=== PATIENT | female | born 1985 | race Caucasian/White ===

== ENCOUNTER → 2017-03-04 | Outpatient (CLI) | payer OTHER | END | disposition home or self-care (01) | LOC: C.PAPS 11:44 | PROVIDERS: ATTEND Physician Assistant | DX: Z01.419 Encounter for gynecological examination (general) (routine) without abnormal findings (principal) ==

== ENCOUNTER 2023-05-04 15:16 | Inpatient (IN) ==
--- NOTE | 2023-05-04 15:22 | ED Triage Note ---
Date of Service May 04, 2023 Provider in Triage Author: Danis Alejandro History of Present Illness This patient was briefly evaluated while in triage. An abbreviated physical exam was performed. This patient is a 37-year-old Female who presents to the ED for evaluation of severe headaches since this past Tuesday. The patient was seen by her PCP, and had a CT scan with an abnormal finding. She was referred to the emergency department for further workup. Patient denies any recent injuries to the head. I did quickly review CT imaging, showing a hyperdense posterior sagittal sinus. This is suspicious for acute dural sinus thrombosis. A CTV of the head was recommended for further evaluation. Physical Exam CONSTITUTIONAL: Healthy and well nourished. Alert and oriented X 3. GCS 15. HEENT: Normocephalic, atraumatic. RESPIRATORY: Clear to auscultation bilaterally with no wheezing, crackles, rhonchi or stridor. CARDIOVASCULAR: Regular rate and rhythm with no murmurs, rubs or gallops. GASTROINTESTINAL: Bowel sounds present in all quadrants. MUSCULOSKELETAL: Full range of motion of all joints without discomfort. INTEGUMENTARY: No rash or other significant dermatologic conditions noted. HEMATOLOGIC: No ecchymosis or petechiae. PSYCHIATRIC: Positive affect. NEUROLOGIC: No ataxia with ambulation. Initial orders for labs and / or imaging were placed and patient was placed in the waiting area until a bed is available. Please see further documentation for the full ED course.
--- NOTE | 2023-05-04 15:46 | Emergency Department Note ---
Impression & Plan Central retinal vein thrombosis ED Provider Note NAME: LYRIC MIGUEL AGE: 37 SEX: F : 1985 ARRIVES VIA: Walk-In INFORMANT: Patient ED PROVIDER(S): Amado Sanchez DO CHIEF COMPLAINT: headache HPI: Patient is a 37-year-old female who presents to the ER for severe headache. This has been present since last Tuesday. She was recently on antibiotics, steroids and treated for pneumonia. She notes she has neck pain as well. No change in vision or loss of vision. No chest pain or shortness of breath. No weakness or numbness in the arms or legs. She does take control. No recent trips, surgeries. Denies any hemoptysis. ADDITIONAL HISTORY OBTAINED: Per HPI Chronic Medical/Social Conditions Affecting Care: Per HPI PAST MEDICAL HISTORY:See Below PAST SURGICAL HISTORY:See Below FAMILY HISTORY:See Below SOCIAL HISTORY:See Below HOME MEDICATIONS:See Below ALLERGIES:See Below VITALS:See Below PHYSICAL EXAMINATION: GENERAL: Sitting up in bed, alert, well appearing, well nourished, no distress, non-toxic EYE EXAM: normal conjunctiva. PERRL and EOM's intact. OROPHARYNX: no exudate, no erythema, lips, buccal mucosa, and tongue normal and mucous membranes are moist NECK: supple, no nuchal rigidity, no adenopathy, non-tender LUNGS: Clear to auscultation. Normal chest wall mechanics HEART: no murmurs, S1 normal and S2 normal ABDOMEN: abdomen soft, non-tender, normo-active bowel sounds, no masses, no rebound or guarding. BACK: Back is symmetrical on inspection and there is no deformity, no midline tenderness, no CVA tenderness. SKIN: no rashes and no bruising UPPER EXTREMITIES: upper extremities are grossly normal. LOWER EXTREMITIES: No pitting edema. NEURO EXAM: Normal sensorium, cranial nerves II-XII intact, normal speech, no weakness of arms, no weakness of legs. No drift. Finger to nose intact. Gross sensation intact. MEDICAL DECISION MAKING: Patient is a 37-year-old female who presents the ER for headache referred in from the outpatient PCP following a CT that suggested a CVT. IV was established blood was obtained. Labs show leukocytosis 17,000. No significant anemia. Patient is on control. INR and PTT were unremarkable. BMP with mild hypokalemia 3.4. LFTs and bilirubin was unremarkable. Troponin was negative. Lipase normal. Discussed with Dr. Richardson and he recommended a CT venogram with a CTA which was performed to confirm sagittal sinus venous thrombosis. Discussed with neurology . He recommended heparin bolus and drip and admission. I discussed the case with the hospitalist for further evaluation management treatment. Updated the patient. No bleeding risk factors in regards to no coughing up blood, vomiting blood, urinating blood or previous brain bleeds or recent surgery. Consults/Care Managements Discussions: Per [facility] Triage Nursing notes reviewed. Limited review of prior medical records performed Vital Signs: reviewed and remarkable for HTN Differential diagnosis: Differential Diagnosis includes but is not limited to headache, tension headache, cluster headache, migraine, subarachnoid hemorrhage, meningitis, mass, central venous thrombus, concussion, trauma and epidural/subdural hemorrhage. ER treatment provided: See below Diagnostics interpreted by me include EKG and cardiac monitoring as listed below: -Cardiac Monitoring: An order was placed for continuous cardiac monitoring. The monitor shows a rate of 70 with sinus rhythm. -ECG: Sinus rhythm rate of 53 Normal axis No PVCs QTc 416 -Laboratory studies:Interpreted by me as stated above in MDM and shown below. Imaging studies: Xrays: As interpreted by me: Portable AP upright 1 view of the chest shows no focal infiltrate CTs show: CTs as described above Procedures:none Critical Care: I have personally spent 45 minutes of critical care time in the direct management of this patient. This includes bedside care, interpretation of diagnostic studies, and testing, discussion with consultants, patient, and family members, and other required patient management activities. This 45 minutes is in excess of all separately billable procedures. Past Med/Surg History Medical History Diarrhea GERD (gastroesophageal reflux disease) Surgical History H/O wisdom tooth extraction Family History Other No family history of adverse response to anesthesia Denies family history of Ovarian cancer Breast cancer Colorectal cancer Social History Smoking Status: Never smoker Second Hand Exposure: No; Do You Dip or Chew Tobacco: No; Hx Alcohol Use: Yes Hx Substance Use: No Preferred Language: Upper Sorbian Communication Ability: Effective Journalism Intern Required: No Beliefs That Will Affect Care: None Current Living Situation: Spouse Feels Safe at Home: Yes Assistive Devices: Contacts and Glasses Allergies Allergies Allergy/AdvReac Type Severity Reaction Status Date / Time No Known Drug Allergies Allergy Verified 04/05/23 15:16 Home Meds Home Medications Medication Instructions Recorded Confirmed montelukast 10 mg tablet 10 mg PO QAM 12/07/19 05/04/23 (Singulair) multivitamin 1 tab PO QAM 12/05/20 05/04/23 omeprazole 20 mg PO QAM 08/13/22 05/04/23 amoxicillin 875 mg-potassium 1 tab PO BID 05/04/23 05/04/23 clavulanate 125 mg tablet prednisone 20 mg tablet 20 mg PO UD 05/04/23 05/04/23 Previous Rx's Medication Instructions Recorded L norgest/E estradiol-E estrad See Rx Instructions .Route 08/13/22 0.15 mg-30 mcg (84)/10 mcg(7) .COMPLEX #91 tabs tabs,3mos (Jaimiess) Results & Data (ED) Vital Signs Vital Signs - 24 hr 05/04/23 15:16 05/04/23 15:20 05/04/23 15:44 Temperature 37.0 C Temperature Source Temporal Artery Scan Pulse Rate 79 56 L Pulse Rate [Right Finger] 61 Pulse Rhythm Regular Regular Pulse Strength Normal Respiratory Rate 14 18 16 Respiratory Effort / Characteristics Non-Labored Spontaneous Non-Labored Respiratory Depth Normal Normal Respiratory Pattern Regular Regular Blood Pressure 153/84 H Blood Pressure [Left Arm] 134/72 Blood Pressure Mean 107 Blood Pressure Mean [Left Arm] 92 Blood Pressure Position Sitting Blood Pressure Position [Left Arm] Semi-fowlers Pulse Oximetry 100 98 99 Oxygen Delivery Method Room Air Room Air Room Air Sepsis Recent Fever Within 48 Hours No Sepsis New/Unexplained Change in Mental Status No Sepsis Action Taken by Nursing No Action Required 05/04/23 16:14 05/04/23 16:30 05/04/23 16:42 Temperature Temperature Source Pulse Rate 66 59 L 56 L Pulse Rate [Right Finger] Pulse Rhythm Pulse Strength Respiratory Rate 15 16 Respiratory Effort / Characteristics Respiratory Depth Respiratory Pattern Blood Pressure 122/69 122/69 Blood Pressure [Left Arm] Blood Pressure Mean 86 86 Blood Pressure Mean [Left Arm] Blood Pressure Position Blood Pressure Position [Left Arm] Pulse Oximetry 91 100 Oxygen Delivery Method Room Air Room Air Sepsis Recent Fever Within 48 Hours Sepsis New/Unexplained Change in Mental Status Sepsis Action Taken by Nursing 05/04/23 17:00 05/04/23 17:30 05/04/23 18:00 Temperature Temperature Source Pulse Rate 53 L 59 L 69 Pulse Rate [Right Finger] Pulse Rhythm Pulse Strength Respiratory Rate 17 17 16 Respiratory Effort / Characteristics Respiratory Depth Respiratory Pattern Blood Pressure 115/64 127/74 130/84 Blood Pressure [Left Arm] Blood Pressure Mean 81 91 99 Blood Pressure Mean [Left Arm] Blood Pressure Position Blood Pressure Position [Left Arm] Pulse Oximetry 100 91 100 Oxygen Delivery Method Room Air Room Air Room Air Sepsis Recent Fever Within 48 Hours Sepsis New/Unexplained Change in Mental Status Sepsis Action Taken by Nursing 05/04/23 18:30 Temperature Temperature Source Pulse Rate 62 Pulse Rate [Right Finger] Pulse Rhythm Pulse Strength Respiratory Rate 18 Respiratory Effort / Characteristics Respiratory Depth Respiratory Pattern Blood Pressure 123/83 Blood Pressure [Left Arm] Blood Pressure Mean 96 Blood Pressure Mean [Left Arm] Blood Pressure Position Blood Pressure Position [Left Arm] Pulse Oximetry 100 Oxygen Delivery Method Room Air Sepsis Recent Fever Within 48 Hours Sepsis New/Unexplained Change in Mental Status Sepsis Action Taken by Nursing Laboratory Data 05/04/23 15:56 05/04/23 15:56 Lab Results 05/04/23 05/04/23 Range/Units 15:56 16:02 WBC 17.06 H (4.8-10.8) K/ul RBC 5.40 (4.20-5.40) M/uL Hgb 15.4 (12.0-16.0) g/dl POC Hgb 15.3 (12.0-16.0) g/dl Hct 45.8 (37.0-47.0) % POC Hct 45 (37-47) % MCV 84.8 (80.0-100.0) fL MCH 28.5 (25.0-34.0) pg MCHC 33.6 (32.0-36.0) g/dL RDW Std Deviation 36.4 (36.4-46.3) fL RDW Coeff of Erendira 12.0 (11.5-14.5) % Plt Count 234 (130-400) K/uL MPV 10.7 (9.4-12.4) fL Immature Gran % (Auto) 1.3 % Neut % (Auto) 54.8 % Lymph % (Auto) 34.6 % Patrick % (Auto) 7.4 % Eos % (Auto) 1.3 % Baso % (Auto) 0.6 % Neut # (Auto) 9.35 H (1.40-6.50) K/uL Lymph # (Auto) 5.91 H (1.20-3.40) K/uL Patrick # (Auto) 1.26 H (0.11-0.59) K/uL Eos # (Auto) 0.22 (0.00-0.50) K/uL Baso # (Auto) 0.10 (0.00-0.20) K/uL Immature Gran # (Auto) 0.22 H (0.01-0.20) K/uL PT 10.9 (9.0-12.0) Seconds INR 1.0 (0.9-1.1) APTT 25 (21-31) Seconds PTT Ratio 0.9 POC Sodium 139 (135-144) mmol/L Sodium 138 (136-145) mmol/L POC Potassium 3.4 (3.3-5.0) mmol/L Potassium 3.4 L (3.5-5.1) mmol/L POC Chloride 101 (101-112) mmol/L Chloride 102 (98-107) mmol/L Carbon Dioxide 26 (21-32) mmol/L POC Total CO2 28 (24-31) mmol/L Anion Gap 10 (3-11) POC Anion Gap 15.0 L (16-25) mmol/L POC BUN 13 (7-18) mg/dl BUN 14 (6-23) mg/dl Creatinine 0.79 (0.6-1.2) mg/dl POC Creatinine 0.8 (0.6-1.3) mg/dl Est Cr Clr Drug Dosing 83.4 ml/min Est GFR ( Amer) 110.1 ml/min Est GFR (Non-Af Amer) 95.0 ml/min BUN/Creatinine Ratio 17.7 (10-20) Glucose 82 (70-99(Fasting)) mg/dl POC Glucose (other) 87 (70-99) mg/dl Calcium 9.4 (8.6-10.3) mg/dl POC Ioniz Calcium Talha 1.13 (1.12-1.32) mmol/l Total Bilirubin 0.4 (0.2-1.0) mg/dl AST 11 L (13-39) U/L ALT 16 (7-52) U/L Alkaline Phosphatase 40 (34-104) U/L Troponin I High Sens < 2.3 (0-14) pg/ml C-Reactive Protein 0.58 H (0-0.5) mg/dl Total Protein 7.5 (6.0-8.3) gm/dl Albumin 4.3 (3.4-5.0) gm/dl Globulin 3.2 (2.5-4.0) gm/dl Albumin/Globulin Ratio 1.3 (0.9-2) Lipase 11 (11-82) U/L Administered Medications Discontinued Medications Heparin Sodium (Porcine) (Heparin Sod (Porcine) 1000 Unit/Ml) 1 units IV NOW ONE Stop: 05/04/23 17:23 Last Admin: 05/04/23 17:19 Dose: 4,000 units Documented By: MILE Co-signed By: YISSEL Heparin Sodium/Dextrose (Heparin Iv Adult Wt-Based Standard W/ Initial Bolus Protocol) 1 each IV NOW STA; Protocol Stop: 05/04/23 17:07 Last Admin: 05/04/23 17:20 Dose: 1 each Documented By: MILE Heparin Sodium/Dextrose (Heparin Sodium/Dextrose) 25,000 units in 500 mls @ 20 mls/hr IV .Q24H SEDA; Protocol Stop: 06/03/23 17:29 Last Admin: 05/04/23 17:20 Dose: 1,000 units/hr, 20 mls/hr Documented By: MILE Co-signed By: YISSEL Ioversol (Optiray 320 125ml) 118 ml IV ONCE ONE Stop: 05/04/23 16:17 Last Admin: 05/04/23 16:19 Dose: 118 ml Documented By: JASPAL Imaging Data Radiologist's Impression: Venogram CT 05/04/23 15:43 CT angio head w con, CT head venogram w con CLINICAL HISTORY: ?cvt TECHNIQUE: CT angiography and venography of the head was performed following intravenous administration of iodinated contrast. Coronal and sagittal MIPS were obtained from the axial data set and were submitted for review. Automated dose lowering techniques and/or adjustment according to patient size were utilized for this examination. All measurements were calculated based on NASCET criteria. CT DOSE: 582.88 mGy.cm Comparison: Comparison is made to CT head 05/04/2023 FINDINGS: CTA Head: The anterior and posterior cerebral circulations are patent. No hemodynamically significant stenosis, aneurysm, dissection, or arteriovenous malformation is shown. CT venogram: Although evaluation is limited by suboptimal contrast timing, there is a large filling defect in the posterior aspect of the superior sagittal sinus extending to the confluence. IMPRESSION: 1. Superior sagittal sinus venous thrombosis. 2. No occlusion, hemodynamically significant stenosis, aneurysm, dissection, or arteriovenous malformation in the major intracranial arteries. Assessment of stenosis of the internal carotid arteries is based on NASCET criteria. ACT 112: Negative or not required by law. Electronically signed by: hCris Balderas M.D. 05/04/2023 4:56 PM Chest X-Ray 05/04/23 15:44 XR chest 1V portable HISTORY: 37 years-old Female Chest pain, nonspecific COMPARISON: None TECHNIQUE: AP view of the chest FINDINGS: Cardiomediastinal and hilar silhouettes are within normal limits. No pneumothorax, pleural effusion, airspace consolidation or pulmonary edema. Bones appear normal. IMPRESSION: No acute process. ACT 112: Negative or not required by law. The above report was generated using voice recognition software. It may contain grammatical, syntax or spelling errors. Electronically signed by: Abilio Ruvalcaba M.D. 05/04/2023 4:21 PM Head CTA 05/04/23 15:48 CT angio head w con, CT head venogram w con CLINICAL HISTORY: ?cvt TECHNIQUE: CT angiography and venography of the head was performed following intravenous administration of iodinated contrast. Coronal and sagittal MIPS were obtained from the axial data set and were submitted for review. Automated dose lowering techniques and/or adjustment according to patient size were utilized for this examination. All measurements were calculated based on NASCET criteria. CT DOSE: 582.88 mGy.cm Comparison: Comparison is made to CT head 05/04/2023 FINDINGS: CTA Head: The anterior and posterior cerebral circulations are patent. No hemodynamically significant stenosis, aneurysm, dissection, or arteriovenous malformation is shown. CT venogram: Although evaluation is limited by suboptimal contrast timing, there is a large filling defect in the posterior aspect of the superior sagittal sinus extending to the confluence. IMPRESSION: 1. Superior sagittal sinus venous thrombosis. 2. No occlusion, hemodynamically significant stenosis, aneurysm, dissection, or arteriovenous malformation in the major intracranial arteries. Assessment of stenosis of the internal carotid arteries is based on NASCET criteria. ACT 112: Negative or not required by law. Electronically signed by: Chris Balderas M.D. 05/04/2023 4:56 PM Neck CTA 05/04/23 15:48 CT angio neck with con CLINICAL HISTORY: 37 years-old Female with ? cvt. Acute headache with cerebral venous sinus thrombosis COMPARISON STUDY: Head CT of same day TECHNIQUE: Following the IV administration of 118 mL of Optiray, CT angiogram of the neck was performed from the aortic arch to the skull base. Images are reviewed in the axial, sagittal, and coronal planes. 3-D MIPS images are created and assessed. IV contrast was administered without complication. All measurements were calculated based on NASCET criteria. A dose lowering technique was utilized adhering to the principles of ALARA. FINDINGS: The imaged pulmonary arterial tree is unremarkable. Three-vessel morphology of the thoracic aortic arch. Patency of the innominate image subclavian arteries. The common and internal carotid arteries appear patent. Codominant and patent vertebral arteries. No aneurysm, dissection, high-grade stenosis or arterial. Lung apices are clear. Triple venous sinuses are better seen on the CT venogram of same day. The venous structures of the neck appear unremarkable. Unremarkable thyroid. Patent airway. No lymphadenopathy or acute fracture. IMPRESSION: 1. Unremarkable CTA of the neck. 2. Please refer to the CT head venogram of same day for additional findings. ACT 112: Negative or not required by law. The above report was generated using voice recognition software. It may contain grammatical, syntax or spelling errors. Electronically signed by: Abilio Ruvalcaba M.D. 05/04/2023 4:52 PM Discharge Plan Visit Data Chief Complaint: Headache Stated Complaint: HEADACHE ED Provider: Amado Sanchez Discharge Problem: Central retinal vein thrombosis Patient Disposition: Admitted As Inpatient Discharge Instructions Interventions: ED Discharge Assessment Last Done: 05/04/23 21:35 Discharge Problem: Central retinal vein thrombosis Qualifiers: Retinal vein occlusion complication status: unspecified complication status L aterality: unspecified laterality Qualified Code(s): H34.8192 - Central retinal vein occlusion, unspecified eye, stable
[2023-05-04 16:15] LABS: iSTAT Creatinine 0.8 mg/dl (0.6-1.3); iSTAT Hemoglobin 15.3 g/dl (12.0-16.0); iSTAT Ionized Calcium 1.13 mmol/l (1.12-1.32); iSTAT Potassium 3.4 mmol/L (3.3-5.0)
[2023-05-04] MEDS: OPTIRAY 320 125ml IV ONE (16:19)
[2023-05-04 16:20] LABS: Hematocrit (blood only) 45.8 % (37.0-47.0); Hemoglobin 15.4 g/dl (12.0-16.0); Mean Corpuscular Hemoglobin 28.5 pg (25.0-34.0); Mean Corpuscular Hgb Conc 33.6 g/dL (32.0-36.0); Mean Corpuscular Volume 84.8 fL (80.0-100.0); Mean Platelet Volume 10.7 fL (9.4-12.4); Platelet Count 234 K/uL (130-400); RDW Standard Deviation 36.4 fL (36.4-46.3); White Blood Count 17.06 K/ul (4.8-10.8)
--- NOTE | 2023-05-04 16:23 | XRay Report ---
XR chest 1V portable HISTORY: 37 years-old Female Chest pain, nonspecific COMPARISON: None TECHNIQUE: AP view of the chest FINDINGS: Cardiomediastinal and hilar silhouettes are within normal limits. No pneumothorax, pleural effusion, airspace consolidation or pulmonary edema. Bones appear normal. IMPRESSION: No acute process. ACT 112: Negative or not required by law. The above report was generated using voice recognition software. It may contain grammatical, syntax o r spelling errors. Electronically signed by: Abilio Ruvalcaba M.D. 05/04/2023 4:21 PM
[2023-05-04 16:32] LABS: Partial Thromboplastin Ratio 0.9; Partial Thromboplastin Time 25 Seconds (21-31); Prothrombin Time 10.9 Seconds (9.0-12.0)
[2023-05-04 16:37] LABS: Basophils % (auto) 0.6 %; Eosinophils # (auto) 0.22 K/uL (0.00-0.50); Eosinophils % (auto) 1.3 %; Immature Granulocytes # (auto) 0.22 K/uL (0.01-0.20); Immature Granulocytes % (auto) 1.3 %; Lymphocytes # (auto) 5.91 K/uL (1.20-3.40); Lymphocytes % (auto) 34.6 %; Monocytes # (auto) 1.26 K/uL (0.11-0.59); Monocytes % (auto) 7.4 %; Neutrophils # (auto) 9.35 K/uL (1.40-6.50); Neutrophils % (auto) 54.8 %
[2023-05-04 16:54] LABS: Troponin I High Sensitivity < 2.3 pg/ml (0-14)
--- NOTE | 2023-05-04 16:55 | CT Scan Report ---
CT angio neck with con CLINICAL HISTORY: 37 years-old Female with ? cvt. Acute headache with cerebral venous sinus thromb osis COMPARISON STUDY: Head CT of same day TECHNIQUE: Following the IV administration of 118 mL of Optiray, CT angiogram of the neck was perform ed from the aortic arch to the skull base. Images are reviewed in the axial, sagittal, and coronal pl anes. 3-D MIPS images are created and assessed. IV contrast was administered without complication. Al l measurements were calculated based on NASCET criteria. A dose lowering technique was utilized adhe ring to the principles of ALARA. FINDINGS: The imaged pulmonary arterial tree is unremarkable. Three-vessel morphology of the thoracic aortic ar ch. Patency of the innominate image subclavian arteries. The common and internal carotid arteries shaan ear patent. Codominant and patent vertebral arteries. No aneurysm, dissection, high-grade stenosis or arterial. Lung apices are clear. Triple venous sinuses are better seen on the CT venogram of same day. The veno us structures of the neck appear unremarkable. Unremarkable thyroid. Patent airway. No lymphadenopath y or acute fracture. IMPRESSION: 1. Unremarkable CTA of the neck. 2. Please refer to the CT head venogram of same day for additional findings. ACT 112: Negative or not required by law. The above report was generated using voice recognition software. It may contain grammatical, syntax o r spelling errors. Electronically signed by: Abilio Ruvalcaba M.D. 05/04/2023 4:52 PM
--- NOTE | 2023-05-04 16:58 | CT Scan Report ---
CT angio head w con, CT head venogram w con CLINICAL HISTORY: ?cvt TECHNIQUE: CT angiography and venography of the head was performed following intravenous administrati on of iodinated contrast. Coronal and sagittal MIPS were obtained from the axial data set and were [place] bmitted for review. Automated dose lowering techniques and/or adjustment according to patient size w ere utilized for this examination. All measurements were calculated based on NASCET criteria. CT DOSE: 582.88 mGy.cm Comparison: Comparison is made to CT head 05/04/2023 FINDINGS: CTA Head: The anterior and posterior cerebral circulations are patent. No hemodynamically significan t stenosis, aneurysm, dissection, or arteriovenous malformation is shown. CT venogram: Although evaluation is limited by suboptimal contrast timing, there is a large filling d efect in the posterior aspect of the superior sagittal sinus extending to the confluence. IMPRESSION: 1. Superior sagittal sinus venous thrombosis. 2. No occlusion, hemodynamically significant stenosis, aneurysm, dissection, or arteriovenous malfor mation in the major intracranial arteries. Assessment of stenosis of the internal carotid arteries is based on NASCET criteria. ACT 112: Negative or not required by law. Electronically signed by: Chris Balderas M.D. 05/04/2023 4:56 PM
[2023-05-04 17:06] LABS: Albumin Level 4.3 gm/dl (3.4-5.0); Anion Gap 10 (3-11); Bilirubin,Total 0.4 mg/dl (0.2-1.0); Calcium 9.4 mg/dl (8.6-10.3); Carbon Dioxide 26 mmol/L (21-32); Chloride 102 mmol/L (98-107); Potassium 3.4 mmol/L (3.5-5.1); Sodium 138 mmol/L (136-145)
[2023-05-04 17:12] LABS: Alanine Aminotransferase 16 U/L (7-52); Alkaline Phosphatase 40 U/L (34-104); Aspartate Aminotransferase 11 U/L (13-39)
[2023-05-04] MEDS: HEPARIN SOD (PORCINE) 1000 UNIT/ML IV ONE (17:19)
[2023-05-04] MEDS: HEPARIN SODIUM/DEXTROSE 25,000 UNITS/500 ML BAG IV SCH (17:20)
[2023-05-04] MEDS: Heparin IV Adult Wt-Based Standard w/ INITIAL Bolus Protocol IV STA (17:20)
[2023-05-04 18:35] LABS: Albumin Globulin Ratio 1.3 (0.9-2); BUN Creatinine Ratio 17.7 (10-20); Blood Urea Nitrogen 14 mg/dl (6-23); Creatinine Clr Calc Pharmacy 83.4 ml/min; Est GFR (African American) 110.1 ml/min; Globulin 3.2 gm/dl (2.5-4.0); Glucose 82 mg/dl (70-99(Fasting)); Lipase 11 U/L (11-82); Total Protein 7.5 gm/dl (6.0-8.3)
--- NOTE | 2023-05-04 18:52 | History & Physical Report ---
Date of Service May 04, 2023 Assessment & Plan (1) Thrombosis, superior sagittal sinus: Plan: appears to be the cause of her headache risk factors for clotting: Inflammatory state from recent pneumonia, hypercoagulability from OCPs --> for now treat with anticoagulationon review of up-to-date, low molecular weight heparin is somewhat favored over unfractionated heparinbut this also probably allows for an easier transition to discharge when she is doing bet terto that respect Lovenox 1 mg/kg SQ every 12. We discussed this clot in the context of the greater picture of clotting disorders, and that treating "the clot" would probably be 3-12 months depending on her clinical recovery, but also given that her risk factors for clotting were not of enormous significance, even though they are transient reversible, we definitely need to keep in mind that she probably has some degree of propensity to clotting moving forward. Discussed the main strategies of treating "the clot" and then watchful waiting with more aggressive measures for DVT prophylaxis if she is in a risky or situation (such as prolonged travel, etc.), versus full dosing of anticoagulation for 3-12 months and then reducing to indefinite prophylactic dosing. (In that respect given that she does not have major reversible risk factors, I did order antiphospholipid antibodies given that that would steer away from a DOAC for any chronic management). Lovenox for now, if she recovers quickly, probably quite reasonable to switch her to a DOAC at time of discharge; if her headache is very slow to resolve, we discussed that given that Lovenox is the most favored treatment, we could easily continue that at discharge and then consider switching to a DOAC down the road. ---> For the headache: We discussed that unfortunately it may be a little bit unpredictable as far as how quick her headache could resolve, and sometimes it can be month-long problems. At the same time, hopefully given that she does not show any severe findings (no neurodeficits or cognitive deficits or alertness deficits at the bedside, no cerebral edema/hemorrhage/etc. on imaging), she has a reasonable prognosis for recovering more quickly. Will treat the headache with scheduled Tylenol, as needed Toradol/morphine for moderate or severe breakthrough pain respectively, and will give her Depakote at bedtime tonight (not really for his anticonvulsant effect, but rather for his efficacy with neurologic headaches such as migraines). Can titrate/escalate treatment if needed. (2) Chronic GERD: Plan: Home PPI (3) Seasonal allergies: Plan: Home montelukast (4) [facility] issues[facility] home once her headache is improving, close PCP follow-up. History of Present Illness Chief Complaint: Headache Primary Care Provider: Royal Hobson patient is a very pleasant 37-year-old female with essentially no significant chronic past medical history. She did have a pneumonia and was treated with antibiotics starting about a week ago. Her respiratory symptoms of [place]r [place] was on antibiotics and steroids. However, Tuesday, she started with a fairly significant and very bothersome headache. She has not really been able to sleep, she is lost her appetite, she cannot run (she is an avid runner) she has not had somnolence, confusion, focal neurodeficits, visual changes, or any other ancillary signs or symptomsjust a headache that goes from the back of her head up to the top of her head that is very intense. She was trying to take care of it at home, saw the chiropractornothing was helping. She went to see her PCP who evaluated her, felt that it did not seem consistent with regular headache pathology and sent her promptly for head CTwhere dural venous sinus thrombosis (specifically sagittal venous sinus thrombosis) was unearthed. We were asked to see her for admission and further management. Other than the headache, she has no complaints when I see her. Allergies Allergy/AdvReac Type Severity Reaction Status Date / Time No Known Drug Allergies Allergy Verified 04/05/23 15:16 Home Medications Medication Instructions Recorded Confirmed Type montelukast 10 mg tablet 10 mg PO QAM 12/07/19 05/04/23 History (Singulair) multivitamin 1 tab PO QAM 12/05/20 05/04/23 History L norgest/E estradiol-E estrad See Rx Instructions .Route 08/13/22 05/04/23 Rx 0.15 mg-30 mcg (84)/10 mcg(7) .COMPLEX #91 tabs tabs,3mos (Jaimiess) omeprazole 20 mg PO QAM 08/13/22 05/04/23 History amoxicillin 875 mg-potassium 1 tab PO BID 05/04/23 05/04/23 History clavulanate 125 mg tablet prednisone 20 mg tablet 20 mg PO UD 05/04/23 05/04/23 History Past Med/Surg History Medical History Diarrhea GERD (gastroesophageal reflux disease) Surgical History H/O wisdom tooth extraction Family History Other No family history of adverse response to anesthesia Denies family history of Ovarian cancer Breast cancer Colorectal cancer Social History Smoking Status: Never smoker Second Hand Exposure: No; Do You Dip or Chew Tobacco: No; Hx Alcohol Use: Yes Hx Substance Use: No Preferred Language: Lithuanian Communication Ability: Effective Terminal Press Operator Required: No Beliefs That Will Affect Care: None Current Living Situation: Spouse Feels Safe at Home: Yes Assistive Devices: Contacts and Glasses Physical Exam Physical Exam: In general she is awake alert oriented x 3 pleasant no distress. HEENT normocephalic atraumatic mucous membranes moist. Cardio is regular no rubs murmurs or gallops. Lungs are clear to auscultation bilaterally no rales rhonchi or wheezes with good effort. Skin shows no rashes, no pallor, no icterus. Neuro shows cranial nerves II through XII to be grossly intact, vision appears to be grossly intact. She shows no focal sensory deficits anywhere, and her strength is 5 out of 5 and equal bilateral upper and lower extremities. Mental status shows good recent and remote recall, normal mood and affect, good judgment and insight. Her mother is present in the room and notes that her mentation is her normal as well. Results & Data Results & Data Vital Signs (Past 12 Hours) Vital Signs Temp Pulse Pulse Resp BP BP Pulse Ox 05/04/23 17:30 59 L 17 127/74 91 05/04/23 17:00 53 L 17 115/64 100 05/04/23 16:42 56 L 16 122/69 100 05/04/23 16:30 59 L 15 122/69 91 05/04/23 16:14 66 05/04/23 15:44 56 L 16 99 05/04/23 15:20 98.6 F 79 18 153/84 H 98 05/04/23 15:16 61 14 134/72 100 O2 Del Method 05/04/23 17:30 Room Air 05/04/23 17:00 Room Air 05/04/23 16:42 Room Air 05/04/23 16:30 Room Air 05/04/23 16:14 05/04/23 15:44 Room Air 05/04/23 15:20 Room Air 05/04/23 15:16 Room Air Code Status & VTE Plan VTE Prophylaxis Plan VTE Prophylaxis will be ordered: Yes PG Care Time/CCT Total # of Minutes Spent Total Time Spent with Patient: Total time spent is greater than 50% in coordination of care (as documented) at patient's floor/unit and/or counseling patient: Coding Level of Care Code 43263 INT INP/OBS CARE 3/75MIN Diagnoses Thrombosis, superior sagittal sinus G08 Chronic GERD K21.9 Seasonal allergies J30.2 Discharge planning issues Z02.9
[2023-05-04 18:58] LABS: C Reactive Protein 0.58 mg/dl (0-0.5)
[2023-05-04] MEDS ORDERED: MoRPHine SULFATE 4 MG/ML 1 ML CARP\\VIAL IV PRN (22:02)
[2023-05-04] MEDS ORDERED: POLYETHYLENE (MIRALAX) 17 GM PACK PO PRN (22:02)
[2023-05-04] MEDS ORDERED: MELATONIN 3 MG TAB PO PRN (22:02)
[2023-05-04] MEDS ORDERED: MAGNESIUM HYDROXIDE SUSP 30 ML UDC PO PRN (22:02)
[2023-05-04] MEDS ORDERED: KETOROLAC TROMETHAMINE 15 MG/ML VIAL IV PRN (22:02)
[2023-05-04] MEDS ORDERED: ENOXAPARIN 1 MG/KG SC SCH (22:02)
[2023-05-04] MEDS ORDERED: ALUMINUM/MAGNESIUM SUSP 30 ML UDC PO PRN (22:02)
[2023-05-04] MEDS: ACETAMINOPHEN 325 MG TAB PO SCH (22:21)
[2023-05-04] MEDS: KETOROLAC TROMETHAMINE 15 MG/ML VIAL IV ONE (22:24)
[2023-05-04] MEDS: VALPROATE SOD 500 MG in DEXTROSE 5% 50 ML IV SCH (22:42)
[2023-05-04] MEDS: ENOXAPARIN INJ 60 MG/0.6 ML SYR SQ SCH (23:52)
--- NOTE | 2023-05-05 06:17 | Electrocardiogram Report ---
Test Reason : Blood Pressure : / mmHG Vent. Rate : 053 BPM Atrial Rate : 053 BPM P-R Int : 116 ms QRS Dur : 098 ms QT Int : 444 ms P-R-T Axes : 046 076 054 degrees QTc Int : 416 ms Sinus bradycardia Otherwise normal ECG No previous ECGs available Confirmed by Dylan Mcfarlane ([id number]) on 05/05/2023 6:17:23 AM Referred By: REFERRED SELF Confirmed By:Dylan Mcfarlane
[2023-05-05 06:26] LABS: Hematocrit (blood only) 41.7 % (37.0-47.0); Hemoglobin 14.2 g/dl (12.0-16.0); Mean Corpuscular Hemoglobin 28.9 pg (25.0-34.0); Mean Corpuscular Hgb Conc 34.1 g/dL (32.0-36.0); Mean Corpuscular Volume 84.9 fL (80.0-100.0); Mean Platelet Volume 10.9 fL (9.4-12.4); Platelet Count 228 K/uL (130-400); RDW Standard Deviation 36.4 fL (36.4-46.3); Red Blood Count 4.91 M/uL (4.20-5.40); White Blood Count 10.36 K/ul (4.8-10.8)
[2023-05-05 07:44] LABS: ANC (manual) 3.63 K/uL (1.4-6.5); Basophils # (manual) 0.21 K/uL (0-0.2); Basophils % (manual) 2 %; Eosinophils # (manual) 0.31 K/uL (0-0.50); Eosinophils % (manual) 3 %; Large Granular Lymph # (manua 1.97 K/uL; Large Granular Lymph % (manual) 19 %; Lymphocytes # (manual) 3.83 K/uL (1.2-3.4); Lymphocytes % (manual) 37 %; Monocytes # (manual) 0.41 K/uL (0.11-0.59); Monocytes % (manual) 4 %; Neutrophils # (manual) 3.63 K/uL (1.40-6.50); Neutrophils % (manual) 35 %; Ovalocytes 1+
[2023-05-05] MEDS: MONTELUKAST SODIUM 10 MG TABLET PO SCH (08:45)
[2023-05-05] MEDS: MULTIVITAMIN TAB PO SCH (08:45)
[2023-05-05] MEDS: PANTOprazole 40 MG TAB PO SCH (08:46)
--- NOTE | 2023-05-05 09:30 | Neurology Consultation ---
Date of Consultation May 05, 2023 Assessment & Plan (1) Thrombosis, superior sagittal sinus: History of Present Illness Attending Physician: Amado Sharpe, DO History of Present Illness pt this morning appears very comfortable. pt did say she is still having back of neck and top of head headache despite toradol, IVF, tylenol overnight. pt appeared clinically very comfortable and talking well and having normal conversation this morning. no weakness or focal deficits. pt has been on OCP (with estrogen containing) for long time. recent pneumonia infection. CTV noted for superior sagital sinus thrombosis. admission HPI: patient is a very pleasant 37-year-old female with essentially no significant chronic past medical history. She did have a pneumonia and was treated with antibiotics starting about a week ago. Her respiratory symptoms of [place] was on antibiotics and steroids. However, Tuesday, she started with a fairly significant and very bothersome headache. She has not really been able to sleep, she is lost her appetite, she cannot run (she is an avid runner) she has not had somnolence, confusion, focal neurodeficits, visual changes, or any other ancillary signs or symptomsjust a headache that goes from the back of her head up to the top of her head that is very intense. She was trying to take care of it at home, saw the chiropractornothing was helping. She went to see her PCP who evaluated her, felt that it did not seem consistent with regular headache pathology and sent her promptly for head CTwhere dural venous sinus thrombosis (specifically sagittal venous sinus thrombosis) was unearthed. We were asked to see her for admission and further management. Other than the headache, she has no complaints when I see her. Allergies Allergy/AdvReac Type Severity Reaction Status Date / Time No Known Drug Allergies Allergy Verified 04/05/23 15:16 Home Medications Medication Instructions Recorded Confirmed Type montelukast 10 mg tablet 10 mg PO QAM 12/07/19 05/04/23 History (Singulair) multivitamin 1 tab PO QAM 12/05/20 05/04/23 History L norgest/E estradiol-E estrad See Rx Instructions .Route 08/13/22 05/04/23 Rx 0.15 mg-30 mcg (84)/10 mcg(7) .COMPLEX #91 tabs tabs,3mos (Jaimiess) omeprazole 20 mg PO QAM 08/13/22 05/04/23 History amoxicillin 875 mg-potassium 1 tab PO BID 05/04/23 05/04/23 History clavulanate 125 mg tablet prednisone 20 mg tablet 20 mg PO UD 05/04/23 05/04/23 History Patient History Medical History Diarrhea GERD (gastroesophageal reflux disease) Surgical History H/O wisdom tooth extraction Family History Other No family history of adverse response to anesthesia Denies family history of Ovarian cancer Breast cancer Colorectal cancer Social History Smoking Status: Never smoker Second Hand Exposure: No; Do You Dip or Chew Tobacco: No; Hx Alcohol Use: No Hx Substance Use: No Preferred Language: Danish Communication Ability: Effective Machine Bender Required: No Beliefs That Will Affect Care: None Current Living Situation: Spouse Feels Safe at Home: Yes Assistive Devices: Glasses Exam (Neuro) Physical Exam: HEENT: normocephalic Neuro: Mental: AOx4, fluent speech, normal comprehension, no apraxia, no L/R confusion, no neglect CN: PERRL, Full EOM, symmetric face, intact sensation t/o face, midline T/U/P, 5/5 SCM/traps. Motor: No abnormal movements, normal tone and bulk, 5/5 t/o bilaterally Sens: intact to touch b/l grossly Coord: intact FNT b/l DTR: 2+ sym b/l Gait: intact per pt. Impression: 37 yo female with cerebral venous thrombosis in setting of OCP use and recent pneumonia. For provoked CVT, usually 3 months of anticoagulation is recommended. Recommendations: stop OCP until follow imaging is normal and for future OCP, no estrogen containing product should be use. agree with Lovenox, pt can transition to OAC (e.g. Eliquis 5mg po bid) once discharged for 3 months and f/u CT venogram in 1-2 months recommended. routine management for headache with IVF and NSAIDs for now is ok. pt clinically does not appears to be in distress. Likely can be discharged tomorrow if pt is feeling better and no new symptoms. Chart reviewed I have spent more than 50% educating patient about potential diagnosis and neurological evaluation and coordinating care with patient's treatment team. Total time spent (including chart review and coordination of care): 60 min (this includes chart review). Results & Data Vital Signs (Past 12 Hours) Vital Signs Temp Pulse Pulse Resp BP BP Pulse Ox 05/05/23 07:54 37.0 C 58 L 14 111/71 96 05/04/23 21:45 05/04/23 21:45 05/04/23 21:45 05/04/23 21:45 36.9 C 62 16 123/72 98 05/04/23 21:35 67 18 111/69 98 Pulse Ox O2 Del Method O2 Del Method 05/05/23 07:54 Room Air 05/04/23 21:45 Room Air 05/04/23 21:45 98 Room Air 05/04/23 21:45 Room Air 05/04/23 21:45 Room Air 05/04/23 21:35 Room Air PG Care Time/CCT Total # of Minutes Spent Total Time Spent with Patient: Total time spent is greater than 50% in coordination of care (as documented) at patient's floor/unit and/or counseling patient: Coding Level of Care Code 61530 IN/OBS CONSULT LVL 4,60M Diagnoses Thrombosis, superior sagittal sinus G08
[2023-05-05] MEDS: ENOXAPARIN INJ 60 MG/0.6 ML SYR SQ SCH (12:10)
--- NOTE | 2023-05-05 13:21 | Hospitalist Progress Note ---
Date of Service May 05, 2023 Assessment & Plan (1) Thrombosis, superior sagittal sinus: Plan Superior Sagittal Sinus Thrombosis: - Cerebral venous sinus thrombosis in the setting of recent pneumonia and OCP use - Neurology consulted, appreciate recs: - Continue Lovenox, plan to transition to oral DOAC upon discharge, anticoagulation x3 months minimum - Neurology recommending repeat CT venogram in 1-2 months - Stop OCP, avoid estrogen-containing medications - Pain control: Tylenol, oxycodone - if difficulty with pain control beyond short-term, consider pain psychology vs biofeedback Dispo: Likely discharge to home tomorrow VTE ppx: Lovenox Admission and Anticipated Discharge Date Admission Date: May 04, 2023 Supervising Physician Co-Signing Physician Notes I personally examined the patient and verified all [place] points of history and exam, discussed case, and agree with decision making with Dr Arnett Headache feels the same. No new deficits or somnolence or confusion. Vitals noted, in general she is awake and alert pleasant no distress. HEENT normocephalic atraumatic mucous membranes moist. Breathing unlabored no accessory muscle use good effort. Skin shows no rashes no pallor or icterus. Neuro without focal deficits. Sagittal venous sinus thrombosisanticoagulation. Pain control. Supportive care. Hopefully home soon. Otherwise as above. Subjective Patient evaluated at bedside, resting comfortably in bed. Pt notes ongoing headache from the occipital region to the midline parietal region, rates it 10/10, constant. Tried Tylenol and 1 dose of Toradol, minimal improvement. No chest pain, SOB, lightheadedness, or visual changes. Review of Systems Review of Systems: as per HPI Physical Exam Physical Exam: General: Alert and oriented. No acute distress Cardiac: Regular rate and rhythm, no murmurs appreciated Respiratory: Lungs clear to auscultation bilaterally, No increased work of breathing Abdominal: non-tender, non-distended. Neuro: AOx3, CN II-XII grossly intact, no focal neuro deficits appreciated. Results & Data Results & Data Vital Signs (Past 12 Hours) Vital Signs Temp Pulse Resp BP Pulse Ox O2 Del Method 05/05/23 07:54 37.0 C 58 L 14 111/71 96 Room Air Resident Activity Tracking Resident Involvement: Resident Care Provided Care Provided: Adult Hospital Medicine
[2023-05-05] MEDS: oxyCODONE HCL IR 5 MG TAB (IMMEDIATE RELEASE) PO STA (13:54)
--- NOTE | 2023-05-05 17:10 | Billing Data ---
Date of Service May 05, 2023 Coding Level of Care Code 63503 SUB INP/OBS CARE MIN
[2023-05-05] MEDS: oxyCODONE HCL IR 5 MG TAB (IMMEDIATE RELEASE) PO PRN (18:04)
[2023-05-05] MEDS: ENOXAPARIN 80 MG/0.8 ML SYR SQ SCH (21:09)
[2023-05-05] MEDS: ONDANSETRON INJ 2 MG/ML 2 ML VIAL IV PRN (21:11)
--- NOTE | 2023-05-06 10:06 | Neurology Progress Note ---
Date of Service May 06, 2023 Assessment & Plan (1) Central retinal vein thrombosis: Admission and Anticipated Discharge Date Admission Date: May 04, 2023 Subjective pt stable. still has headache but pt clinically appears stable. Results & Data Vital Signs (Past 12 Hours) Vital Signs Temp Pulse Resp BP Pulse Ox O2 Del Method 05/06/23 07:25 36.8 C 69 16 110/69 96 Room Air Exam (Neuro) Physical Exam: Neuro: Mental: AOx4, fluent speech, normal comprehension, no apraxia, no L/R confusion, no neglect CN: PERRL, Full EOM, symmetric face, Motor: No abnormal movements Impression: 37 yo female with superior sagittal sinus thrombosis in setting of OCP and pneumonia. stable clinically. Recommendations: recommend trial of pamelor 25mg po qhs and mg oxide 400mg po bid for headache management. she can have routine f/u with [facility] neurology in about 1-2 months continue OAC as outpt as recommended. ok for discharge. Chart reviewed I have spent more than 50% educating patient about potential diagnosis and neurological evaluation and coordinating care with patient's treatment team. Total time spent (including chart review and coordination of care): 35 min (this includes chart review). PG Care Time/CCT Total # of Minutes Spent Total Time Spent with Patient: Total time spent is greater than 50% in coordination of care (as documented) at patient's floor/unit and/or counseling patient: Coding Level of Care Code 02186 SUB INP/OBS CARE 2/35MIN Diagnoses Central retinal vein thrombosis H34.8192 Laterality: unspecified laterality Retinal vein occlusion complication status: unspecified complication status (1) Central retinal vein thrombosis Laterality: unspecified laterality Retinal vein occlusion complication status: unspecified complication status Qualified Code(s): H34.8192 - Central retinal vein occlusion, unspecified eye, stable
[2023-05-06] MEDS: levETIRAcetam 250 MG TAB PO ONE (10:28)
--- NOTE | 2023-05-06 14:05 | Pain Management Consultation ---
Date of Consultation May 06, 2023 Assessment & Plan (1) Thrombosis, superior sagittal sinus: Plan 1. Keppra 250 mg at bedtime was added to see if it may further diminish the patient's headache. 2. Tylenol and oxycodone if needed for pain relief. 3. Nothing interventional to offer the patient. Please contact the pain clinic should there be any questions concerns History of Present Illness Reason for Consultation: headache Attending Physician: Amado Sharpe, DO History of Present Illness This is a 29 female that came into the level of the [facility] emergency department for a significant headache. She did have pneumonia and was treated on antibiotics and steroids and about a week later she developed a constant headache located from the neck radiating frontally. No aggravating or alleviating symptoms. On head CT angio she was found to have a dural venous sinus thrombosis and placed on Lovenox. Headache remains unchanged. No vision changes, extremity weakness. Case discussed with Dr. Kathy Mijares Allergies Allergy/AdvReac Type Severity Reaction Status Date / Time No Known Drug Allergies Allergy Verified 04/05/23 15:16 Home Medications Medication Instructions Recorded Confirmed Type montelukast 10 mg tablet 10 mg PO QAM 12/07/19 05/04/23 History (Singulair) multivitamin 1 tab PO QAM 12/05/20 05/04/23 History omeprazole 20 mg PO QAM 08/13/22 05/04/23 History apixaban 5 mg (74 tabs) tablets in 5 mg PO BID #74 ea 05/06/23 Rx a dose pack (Eliquis) levetiracetam 250 mg tablet 250 mg PO HS 30 days #30 tabs 05/06/23 Rx (Keppra) Patient History Medical History Diarrhea GERD (gastroesophageal reflux disease) Surgical History H/O wisdom tooth extraction Family History Other No family history of adverse response to anesthesia Denies family history of Ovarian cancer Breast cancer Colorectal cancer Social History Smoking Status: Never smoker Second Hand Exposure: No; Do You Dip or Chew Tobacco: No; Hx Alcohol Use: No Hx Substance Use: No Preferred Language: Arabic Communication Ability: Effective Cartridge Maker Required: No Beliefs That Will Affect Care: None Current Living Situation: Spouse Feels Safe at Home: Yes Assistive Devices: None Physical Exam Physical Exam: GENERAL: This is a pleasant 37 year old female in no acute distress. HEAD/FACE: Normocephalic and atraumatic. EYES: No drainage or conjunctival injection. ENT: Nose without bleeding or discharge. Oral mucosa moist. NECK: Full ROM without apparent pain. RESPIRATORY: Patient with unlabored breathing. No signs of respiratory distress. CHEST/AXILLA: Chest movement symmetrical. No deformities noted. SKIN: [place], warm and dry. No rash noted. MS/EXTREMITY: No swelling, no deformities. Moving extremities appropriately. NEURO: Alert and appears oriented. Speech is fluent. Cranial Nerves are grossly intact. PSYCH: Alert, pleasant, affect is calm
--- NOTE | 2023-05-06 14:12 | Discharge Summary ---
Date of Service May 06, 2023 Admission HPI Per Admitting Provider patient is a very pleasant 37-year-old female with essentially no significant chronic past medical history. She did have a pneumonia and was treated with antibiotics starting about a week ago. Her respiratory symptoms of gotten bettershe was on antibiotics and steroids. However, Tuesday, she started with a fairly significant and very bothersome headache. She has not really been able to sleep, she is lost her appetite, she cannot run (she is an avid runner) she has not had somnolence, confusion, focal neurodeficits, visual changes, or any other ancillary signs or symptomsjust a headache that goes from the back of her head up to the top of her head that is very intense. She was trying to take care of it at home, saw the chiropractornothing was helping. She went to see her PCP who evaluated her, felt that it did not seem consistent with regular headache pathology and sent her promptly for head CTwhere dural venous sinus thrombosis (specifically sagittal venous sinus thrombosis) was unearthed. We were asked to see her for admission and further management. Other than the headache, she has no complaints when I see her. Admission Exam Per Admitting Provider In general she is awake alert oriented x 3 pleasant no distress. HEENT normocephalic atraumatic mucous membranes moist. Cardio is regular no rubs murmurs or gallops. Lungs are clear to auscultation bilaterally no rales rhonchi or wheezes with good effort. Skin shows no rashes, no pallor, no icterus. Neuro shows cranial nerves II through XII to be grossly intact, vision appears to be grossly intact. She shows no focal sensory deficits anywhere, and her strength is 5 out of 5 and equal bilateral upper and lower extremities. Mental status shows good recent and remote recall, normal mood and affect, good judgment and insight. Her mother is present in the room and notes that her mentation is her normal as well. Principal Diagnosis Sagittal venous sinus thrombosis Discharge Exam General: Alert and oriented. No acute distress Cardiac: Regular rate and rhythm, no murmurs appreciated Respiratory: Lungs clear to auscultation bilaterally, No increased work of breathing Abdominal: non-tender, non-distended. Neuro: AOx3, CN II-XII grossly intact, no focal neuro deficits appreciated. Discharge Data Allergies Allergy/AdvReac Type Severity Reaction Status Date / Time No Known Drug Allergies Allergy Verified 04/05/23 15:16 Consultations 05/04/23 17:07 ED Decision to Admit Stat 05/05/23 08:52 Consult Neurology Routine 05/05/23 18:52 Consult Pain Management Routine Ordered Studies 05/04/23 15:43 CT head venogram w con Stat 05/04/23 15:48 CT angio head w con Stat CT angio neck with con Stat Hospital Course (1) Thrombosis, superior sagittal sinus: Plan Superior Sagittal Sinus Thrombosis: - Cerebral venous sinus thrombosis in the setting of recent pneumonia and OCP use - Lovenox while hospitalized, discharged on Eliquis x minimum 3 months, though consider plan for chronic management as patient likely with predisposition toward clotting - Follow up with outpatient neurology, recommending repeat CT venogram in 1-2 months - Stop OCP, avoid estrogen-containing medications - Pain control: Started on Keppra as recommended by pain management - Consider outpatient pain management if not responding - Anti-phospholipid antibody labs drawn, pending at time of discharge. Follow up in outpatient setting Total Time Total Time Spent Total Time Spent (In Minutes): <30 Discharge Plan Discharge Items Patient Disposition: Home - Self-Care Reason For Visit: DURAL VENOUS SINUS THROMBOSIS Discharge Diagnosis: superior sagittal venous sinus thrombosis Activity: As commented below Activity Comment: gradual progression of activity as tolerated Non-emergency contact: Primary Care Provider and Neurologist Call non-emergency contact if: you have any medication questions and your symptoms worsen Follow-up/Referrals: Royal Hobson [Primary Care Provider] - 05/10/23 10:45 am Obdulio Bojorquez MD [Physician] - Diet: Regular Addtl Attending Provider Instructions: You were admitted to the hospital due to venous sinus thrombosis. Upon discharge, it is important that you continue to take a blood thinner, called Eliquis. Please take 2 tabs (10mg) twice daily for the first 7 days, then take 1 tab (5mg) twice daily thereafter. You will need to continue this medication for a minimum of 3 months, but following up with neurology can help determine duration and need for follow up imaging. You were also started on Keppra while in the hospital, please continue to take this medication - this may take time before you see improvement in headaches. If pain persists unchanged, consider follow up with pain management. A discharge summary will be sent to your primary care physician to ensure continuity of care. Please bring this discharge summary with you to your next office appointment so that your provider can review it at that time. Medications: Your medication list has been reviewed and reconciled upon discharge to ensure accuracy and continuity of care. An updated list of all your medications is included with your hospital discharge paperwork. Please review this list closely and make note of any changes to your medications. New medications: - Eliquis: Please take 2 tabs (10mg) twice daily for the first 7 days, then take 1 tab (5mg) twice daily thereafter - Keppra Follow up appointments: - Make a follow up appointment with your PCP within the next week. It is very important that you follow up with them shortly after discharge from the hospital. - Keep all of your follow up appointments as already scheduled. If you cannot make an appointment, notify your provider. CONTACT YOUR PRIMARY CARE PROVIDER if you experience any of the following: - Difficulty following your treatment plan - Difficulty taking any of your medications CALL 911 OR GO TO THE EMERGENCY DEPARTMENT if you experience any of the following: - Sudden, severe abdominal pain or nausea/vomiting - Severe chest pain or chest pain that radiates to your jaw or arm - Sudden, severe shortness of breath or difficulty breathing Pending Studies at Discharge: No Stand-Alone Forms: My [facility], Smoking Cessation Medications and DC Order Prescriptions: New levetiracetam [Keppra] 250 mg Tablet 250 mg PO HS 30 Days Qty: 30 0RF Eliquis 5 mg (74 tabs) tablets,dose pack 5 mg PO BID Qty: 74 0RF Rx Instructions: Please take 2 tabs (10mg) twice daily for first 7 days, then: take 1 tab (5mg) twice daily thereafter Continued omeprazole 20 mg PO QAM montelukast [Singulair] 10 mg tablet 10 mg PO QAM multivitamin Tablet 1 tab PO QAM Discontinued L norgest/e.estradiol-e.estrad [Jaimiess] 0.15 mg-30 mcg (84)/10 mcg (7) tablets,dose pack,3 month See Rx Instructions .ROUTE .COMPLEX Qty: 91 3RF Dose Instruction: TAKE ONE TABLET BY MOUTH IN THE MORNING Rx Instructions: TAKE ONE TABLET BY MOUTH IN THE MORNING prednisone 20 mg tablet 20 mg PO UD amoxicillin-pot clavulanate 875-125 mg tablet 1 tab PO BID Rx Instructions: HASNT PICKED UP Discharge Orders: Discharge Order (Routine); Ordered 05/06/23 Ordered By: Ganga Hoskins/Other Patient Handouts: Anticoagulants Admission Data Admit Date/Time: 05/04/23 18:38 Attending Provider: Amado Sharpe Admit Provider: Amado Sharpe Primary Care Provider: Royal Hobson Other Providers: Chuckie Moreno; Obdulio Bojorquez; Mina Bella; Kathy Mijares; Kameron Wilcox; vIette Posadas; Amado Crews Other Interventions: Discharge Summary Assessment (RN) Last Done: 05/06/23 13:34 Supervising Physician Co-Signing Physician Notes I personally examined the patient and verified all [place] points of history and exam, discussed case, and agree with decision making with Dr Arnett Headache about the same, discussed with pain managementinput appreciated. Patient does feel okay about going home. presentupdated to the best my ability and answered all questions to the best my ability and to his satisfaction. Vitals noted, in general she is awake and alert pleasant no distress. HEENT normocephalic atraumatic mucous membranes moist. Breathing unlabored no accessory muscle use good effort. Skin shows no rashes no pallor or icterus. Neuro without focal deficits. Sagittal venous sinus thrombosisanticoagulation. safe for home. Pain control has been difficult, but she understands this and would like to go home. In discussion with pain managementryan Sam. PCP follow-up next week. Discussed that given how long the headache may take to resolve, may require more of a "mind-body" approachand suggested a psychology clinic that does neuro biofeedback. Updated PCP. Anticoagulation duration will be a little bit difficult to concludetreating the clot will be 3-12 months depending on her clinical improvement, but then given the transient provoking factors, but not major reversible factors, there is certainly case to be made for some degree of chronic prophylactic anticoagulation indefinitely versus if anticoagulation is held at least aggressive prophylaxis on travel days/perioperative/etc. Resident Activity Tracking Resident Involvement: Resident Care Provided Care Provided: Adult Hospital Medicine
--- NOTE | 2023-05-06 19:12 | Billing Data ---
Date of Service May 06, 2023 Coding Level of Care Code 89309 IN/OBS DISCH 30 MIN/LESS
[2023-05-06] MEDS ORDERED: levETIRAcetam 250 MG TAB PO SCH (21:00)
== END 2023-05-06 16:00 | disposition home or self-care (01) | DRG 93 ==
LOC: ED 15:16 → 3W 18:38